=== PATIENT | female | born 1970 | race Caucasian/White ===

== ENCOUNTER 2020-01-09 22:24 | Emergency (ER) | payer SELFPAY ==
[2020-01-09 22:34] VITALS: BP 119/77; PULSE 108; RESP 20; TEMP 523.8; TEMP 975; O2SAT 94; BMI 25.7
--- NOTE | 2020-01-09 22:53 | XR_ITS ---
WS: [id number] Portable AP upright chest, 01/09/2020 Clinical Data: cough, SOB Comparison: None. Findings: No nodules, masses or effusions are seen. The heart is normal. The pulmonary vascularity is not increased. No pneumothorax is seen. Minimal interstitial prominence is seen throughout both lung s and this could indicate pulmonary edema or diffuse pneumonia. XR/XR chest 1V portable [id number] Impression: 1. Small interstitial opacities which could indicate pulmonary edema or diffuse pneumonia. 2. Recommend repeat chest x-ray in 2-3 days.
--- NOTE | 2020-01-09 22:55 | W.ED.SOB ---
HPI - SOB/Dyspnea General: Chief Complaint: Shortness of Breath/Dyspnea Stated Complaint: fever/cough/sob/sore throat Time Seen by Provider: 01/09/20 22:49 History of Present Illness: HPI Narrative: She presents with shortness of breath cough that is got worse today started yesterday. Says she has had a loss of taste also has diarrhea is a smoker. Says she has a sore throat nasal congestion nonproductive cough says she just cannot get her breath MD elicited complaint: shortness of breath and cough Onset (ago): day(s) Timing: constant and progressively worsening Severity: moderate Exacerbating factors: nothing Relieving factors: nothing Associated symptoms: Reports cough, extremity pain and myalgias; Deny abdominal pain, chest pain, fever(s), nausea or vomiting Treatment prior to arrival: none Review of Systems Const: Denies: fever(s), chills or body aches Eyes: Denies: change in vision or blurry vision ENMT: Reports: throat pain, nasal congestion and other (Loss of taste) Card: Denies: chest pain or dyspnea on exertion Resp: Reports: dyspnea and non-productive cough; Denies: productive cough GI: Denies: abdominal pain, nausea or vomiting Musc: Reports: extremity pain Skin/Breast: Denies: rash Neuro: Denies: headache(s) Psych: Denies: anxiety or depression Mathew/Lymph: Denies: easy bruising Physical Exam Const: COMMON NORMALS: no acute distress, average body habitus and patient oriented x3 HENMT: COMMON NORMALS: normocephalic HEAD & SCALP: normal to inspection and normocephalic FACE & SINUS: normal facial exam Eye: COMMON NORMALS: conjunctivae normal GENERAL EYE: appearance normal, both eyes and all related structures CONJUNCTIVA: Yes conjunctivae normal Neck/C-Spine: COMMON NORMALS: no JVD Chest: COMMONS NORMALS: normal inspection of the chest Resp: COMMON NORMALS: normal respiratory effort AUSCULTATION: rhonchi throughout Cardio: COMMON NORMALS: no JVD, regular rate and regular rhythm RATE: regular rate RHYTHM: regular rhythm GI: COMMON NORMALS: Normal to inspection, nondistended, normoactive bowel sounds present Extremity: COMMON NORMALS: normal to inspection and full ROM Neuro: COMMON NORMALS: patient oriented x3 Course Vital Signs: Vital signs: Vital Signs Temperature 975 F H 11/03/20 22:34 Pulse Rate 108 H 01/09/20 22:34 Respiratory Rate 20 H 01/09/20 22:34 Blood Pressure 119/77 01/09/20 22:34 Pulse Oximetry 94 01/09/20 22:34 Coding Level of Care Code ED [employer] Professor for Pramod Buchanan
[2020-01-09 23:38] VITALS: BP 111/75; PULSE 96; O2SAT 91
[2020-01-09 23:58] LABS: Basophils # 0.1 10^3/uL (0.0-0.1); Basophils % 0.5 %; Eosinophils # 0.1 10^3/uL (0.0-0.8); Eosinophils % 1.2 %; Hematocrit 39.6 % (37.0-47.0); Hemoglobin 12.6 g/dL (11.5-15.3); Lymphocytes % 17.1 %; Mean Corpuscular HGB Conc 31.8 g/dL (30.0-36.0); Mean Corpuscular Hemoglobin 31.1 pg (28.0-34.0); Mean Corpuscular Volume 97.8 fL (81-99); Mean Platelet Volume 11.6 fL (7.4-10.4); Monocytes # 1.4 10^3/uL (0.2-0.9); Monocytes % 11.5 %; Neutrophils # 8.14 10^3/uL (1.8-7.7); Neutrophils % 69.1 %; Nucleated Red Blood Cells % 0 %; Platelet Count 180 10^3/cmm (130-400); Red Blood Count 4.05 10^6/uL (4.1-5.3); Red Cell Distribution Width 14.2 % (12.1-15.1); White Blood Count 11.8 10^3/uL (4.0-10.0)
[2020-01-10 00:13] LABS: D Dimer 0.51 ug/mIFEU (0-0.59)
[2020-01-10 00:17] LABS: Alanine Aminotransferase 12 U/L (0-33); Alkaline Phosphatase 106 IU/L (35-105); Anion Gap 10.9 (5-19); Aspartate Amino Transferase 25 U/L (0-32); Blood Urea Nitrogen 8 mg/dL (6-20); Calcium 8.8 mg/dL (8.5-10.5); Carbon Dioxide 30 mmol/L (22-29); Chloride 101 mmol/L (98-107); Globulin 3.2 g/dL (1.3-4.6); Glomerular Filtration Rate 58.9 mL/min (90-130); Glucose 102 mg/dL (65-115); Osmolality Calculated 285 mOsm/kg (285-295); Potassium 3.9 mmol/L (3.5-5.1); Sodium 138 mmol/L (136-145); Total Bilirubin 0.2 mg/dL (0.15-1.2); Total Protein 7.2 g/dL (6.6-8.7)
[2020-01-10 00:43] VITALS: PULSE 109; RESP 24; O2SAT 92
[2020-01-10 01:00] VITALS: BP 128/66; PULSE 106; RESP 21; O2SAT 90
[2020-01-10 01:09] LABS: SARS Covid-2 Antigen Negative (Negative)
[2020-01-10 01:10] LABS: Influenza A by IFA Negative (Negative); Influenza B by IFA Negative (Negative)
[2020-01-10 01:45] VITALS: PULSE 100; RESP 15; O2SAT 90
[2020-01-11 19:28] LABS: Quest SARS-CoV-2 RNA NOT DETECTED (NOT DETECTED)
--- NOTE | 2020-01-12 09:51 | PC.NURSE ---
Attempted to call pt with COVID results unable to reach and voicemail is not set up. Letter was mailed to pt today.
== END 2020-01-10 01:49 | disposition home or self-care (01) ==
PROVIDERS: Emergency Provider Nurse Practitioner Family
DX: R06.02 Shortness of breath (principal)
CPT/HCPCS: 12345; 71045; 80053; 83605; 85025; 85378; 87426; 87635; 87804; 94640; 96374; 99284; J2930; J3535

== ENCOUNTER → 2020-04-09 11:30 | Outpatient (BNVA) | payer MEDICAID, SELFPAY | PROVIDERS: Visit Provider Nurse Practitioner | DX: R63.5 Abnormal weight gain (principal); R10.11 Right upper quadrant pain | CPT/HCPCS: 80053; 82150; 83690; 84443; 85025 ==

== ENCOUNTER → 2020-04-10 13:39 | Outpatient (BNVA) | payer MEDICAID, SELFPAY | PROVIDERS: PCP Nurse Practitioner Family; Visit Provider Nurse Practitioner Family | DX: M25.511 Pain in right shoulder (principal); G89.29 Other chronic pain | CPT/HCPCS: 73030 ==

== ENCOUNTER → 2021-08-27 16:00 | Outpatient (BNVA) | payer MEDICAID, SELFPAY | PROVIDERS: PCP Nurse Practitioner Family; Visit Provider Nurse Practitioner Family | DX: J40 Bronchitis, not specified as acute or chronic (principal); R05.9 Cough, unspecified | CPT/HCPCS: 87635 ==

== ENCOUNTER 2022-07-08 13:41 | Outpatient (CLI) | payer MEDICAID, SELFPAY ==
--- NOTE | 2022-07-08 14:00 | CTR_ITS ---
PROCEDURE INFORMATION: Exam: CT Abdomen And Pelvis With Contrast Exam date and time: 07/08/2022 2:42 PM Age: 52 years old Clinical indication: Abdominal pain; Localized; Right upper quadrant (ruq); Prior surgery; Surgery type: Tubal, gb, appy, 2x c-sections; Patient HX: Pain in right upper quad and across to left side x 2 years; Additional info: M79.10 - myalgia, unspecified site TECHNIQUE: Imaging protocol: Computed tomography of the abdomen and pelvis with contrast. Radiation optimization: All CT scans at this facility use at least one of these dose optimization techniques: automated exposure control; mA and/or kV adjustment per patient size (includes targeted exams where dose is matched to clinical indication); or iterative reconstruction. Contrast material: OMNI 350; Contrast volume: 95 ml; Contrast route: INTRAVENOUS (IV); REPORTING DATA: Count of CT and Cardiac NM exams in prior 12 months: This patient has received 0 known CTs and 0 known cardiac nuclear medicine studies in the 12 months prior to the current study. COMPARISON: CR XR chest 1V portable [id number] 01/09/2020 10:55 PM RADIATION DOSE METRICS: Total DLP (mGy-cm): 362.48 FINDINGS: Lungs: No significant infiltrate or effusion within the visualized lung bases. Liver: Normal. No mass. Gallbladder and bile ducts: Surgical clips within the gallbladder fossa, prior cholecystectomy. No biliary ductal dilatation. Pancreas: Normal. No ductal dilation. Spleen: Normal. No splenomegaly. Adrenal glands: Normal. No mass. Kidneys and ureters: Mild extrarenal pelvis on the right and kidneys show no significant abnormality. Stomach and bowel: Postsurgical clips in the pericecal region of prior appendectomy. No bowel obstruction. No focal inflammatory change. Appendix: See Stomach and bowel finding. Intraperitoneal space: Unremarkable. No free air. No significant fluid collection. Vasculature: Mild vascular calcification without aneurysmal dilatation of the abdominal aorta. Lymph nodes: Unremarkable. No enlarged lymph nodes. Urinary bladder: Unremarkable as visualized. Reproductive: Unremarkable as visualized. Bones/joints: Mild spondylotic change lower lumbar spine with component of degenerative disc disease L4-5. Soft tissues: Unremarkable. CT/CT abdomen pelvis w con* [id number] IMPRESSION: 1. Previous cholecystectomy and appendectomy. 2. Mild extrarenal pelvis of the right kidney, variation of normal. 3. Mild vascular calcification. 4. Mild spondylotic change lower lumbar spine with degenerative disc disease L4-5.
[2022-07-08] MEDS: iohexol 350 mg/mL 500 mL Btl (per mL) PO (14:28)
[2022-07-08] MEDS: iohexol 350 mg/mL 500 mL Btl (per mL) IV (14:45)
== END 2022-07-08 13:42 | disposition home or self-care (01) ==
PROVIDERS: PCP Family Medicine; Visit Provider Family Medicine
DX: F17.219 Nicotine dependence, cigarettes, with unspecified nicotine-induced disorders (principal); F41.0 Panic disorder [episodic paroxysmal anxiety]; F41.1 Generalized anxiety disorder; M79.10 Myalgia, unspecified site; R10.11 Right upper quadrant pain; R19.00 Intra-abdominal and pelvic swelling, mass and lump, unspecified site; R53.82 Chronic fatigue, unspecified; Z13.6 Encounter for screening for cardiovascular disorders; Z13.220 Encounter for screening for lipoid disorders; Z76.89 Persons encountering health services in other specified circumstances; Z90.49 Acquired absence of other specified parts of digestive tract
CPT/HCPCS: 74177; 80053; 80061; 84443; 85025; 85651; 86140; Q9967

== ENCOUNTER 2022-09-25 10:45 | Outpatient (CLI) | payer MEDICAID, SELFPAY ==
--- NOTE | 2022-09-25 10:54 | MM_ITS ---
WS: [id number] VIEWS: MLO and CC views both breasts. 3D digital tomosynthesis is also included in this exam. No priors. Findings: There is a 2 cm asymmetrical parenchymal density at about the 1:00 position in the right breast at an terior depth. No suspicious calcification or architectural distortion noted. This may represent a ham artoma. Compression spot views and regional ultrasound is suggested for further workup. The left abiel st is unremarkable.There are scattered areas of fibroglandular density. MM/[place] [id number] Impression: BI-RADS: 0-Incomplete: Need additional imaging evaluation FOLLOW-UP: See Report This mammogram was also analyzed by the Computer A[employer] Detection System [employer] Certified Low Vision Therapist.
== END 2022-09-25 10:46 | disposition home or self-care (01) ==
LOC: RAD 10:45
PROVIDERS: PCP Family Medicine; Visit Provider Family Medicine
DX: Z12.31 Encounter for screening mammogram for malignant neoplasm of breast (principal)
CPT/HCPCS: 77063; 77067

== ENCOUNTER 2022-09-29 12:22 | Emergency (ER) | payer MEDICAID, SELFPAY ==
[2022-09-29 12:42] VITALS: BP 125/85; PULSE 80; RESP 18; TEMP 37; O2SAT 95; BMI 24.0
--- NOTE | 2022-09-29 12:53 | XR_ITS ---
WS: [id number] EXAMINATION: XR chest 1V portable [id number] REASON FOR EXAM: Syncope COMPARISON: 01/09/2020 ORDER DATE: 09/29/2022 12:56 PM TECHNIQUE: A single, portable frontal chest x-ray was obtained. X-RAY FINDINGS: The lungs are clear. Pleural spaces are clear. No pleural effusions or pneumothorax. Cardiomediastinal silhouette is normal. No evidence for pulmonary edema. Soft tissue and osseous structures are unremarkable. No tubes or lines are present. There is a small metal snap-like density superimposing the lateral lef t upper lobe. XR/XR chest 1V portable [id number] IMPRESSION: Unremarkable frontal portable chest x-ray.
--- NOTE | 2022-09-29 12:53 | CT_ITS ---
WS: [id number] CT HEAD TECHNIQUE: Noncontrast CT of the head obtained from the skullbase to the vertex. CLINICAL INFORMATION: sudden severe headache COMPARISON: None. DLP: 985.[address] scans at [facility] use at least one of these dose optimization techniques: automated e xposure control; mA and/or kV adjustment per patient size (includes targeted exams where dose is matc hed to clinical indication); or iterative reconstruction. FINDINGS: No evidence of intracranial hemorrhage or mass effect. Ventricular system and basal cisterns are crespo nt. No extra-axial fluid collections. Mild intracranial vascular calcification. No evidence of mass o r mass effect. Normal lees-white differentiation. Paranasal sinuses and mastoid air cells are well aerated. .Normal visualized soft tissues. CT/CT head wo con* [id number] IMPRESSION: 1. No evidence of intracranial hemorrhage or mass effect. 2. No acute intracranial findings.
--- NOTE | 2022-09-29 13:01 | ED_ITS ---
Documented by User: BRITTANY Todd 09/30/22 08:25 HPI - Syncope General: Chief Complaint: Syncope Stated Complaint: Headache Time Seen by Provider: 09/29/22 12:43 History of Present Illness: Patient comes to the ED with episode of severe headache. Patient says this morning she woke up and was outside and worked in her yard a little bit. She was having a mild headache that was generalized and she took 500 mg of Tylenol at approximately 10 AM. she was sitting down eating lunch at approximately 12 to 12:30 PM and all of a sudden she developed a very severe sharp headache that started on the top left side of her head and then started radiating down into the left maxillary region of her face. At that time she states that she felt like she was going to pass out. She had nausea and had a couple episodes of emesis as well she became very weak. She started feeling some numbness and tingling in her left arm and hand. She felt like she could not control her left arm and hand. She also reports feeling like she could not open her eyelids on her left eye. She denies any preceding symptoms, chest pain, shortness of breath or heart palpitations. She felt like she was going to pass out but never completely passed out. EMS was called to her house and they found patient laying on the floor. Here in the ED her headache is more mild and she rates it a 5 out of 10. She still feels a little bit of numbness and tingling in her left arm but says the other symptoms have resolved and she is able to move her left arm the way she wants to but it feels a little weak and not right. Denies any history of strokes and patient is not on a blood thinner. Denies any recent head injuries. Associated symptoms: Reports headache(s); Deny abdominal pain, chest pain, fever(s) or nausea Review of Systems Const: Denies: fever(s), chills or fatigue Eyes: Denies: change in vision or eye discomfort ENMT: Denies: throat pain, odynophagia, nasal discharge or nasal congestion Card: Reports: pre-syncope; Denies: chest pain, palpitations, edema, swelling of feet/ankles, dyspnea on exertion or orthopnea Resp: Denies: dyspnea, productive cough or non-productive cough GI: Denies: abdominal pain, nausea, vomiting, diarrhea, constipation or hematochezia : Denies: flank pain, dysuria or hematuria Musc: Denies: neck pain, back pain or extremity swelling Skin/Breast: Denies: rash or new lesions Neuro: Reports: headache(s), numbness in extremities (Left arm and hand) and weakness in extremities (Left arm and hand) PFSH ED PFSH: Medical History Hx of pneumococcal pneumonia Surgical History Hx of appendectomy Lap Hx of section x 2 Hx of cholecystectomy Lap Social History Smoking and tobacco status: current every day smoker cigarettes Packs smoked per day: 0.5 Second hand smoke exposure: No Smoking risk assessment/counseling performed?: No Alcohol intake: never Desire information about alcohol rehabilitation?: No Counseling given: No Substance/Drug Use: current Substance/Drug use frequency: few times a week Desire information about substance/drug rehabilitation?: No Counseling given: No Adopted: No Caregiver/support person: No Lives independently: Yes Household members: none Housing: House Marital status: Number of children: 2 service: No Current occupational status: unemployed Pets and animals: No Do you think of yourself as: Straight/Heterosexual Current gender identity: Female Physical Exam Const: COMMON NORMALS: no acute distress, patient oriented x3, healthy appearing and alert HENMT: COMMON NORMALS: normocephalic HEAD & SCALP: normocephalic MOUTH: Normal oral and palatal mucosa present THROAT: posterior oropharynx normal and uvula midline Eye: COMMON NORMALS: Equal, round and reactive pupils present and EOMs intact bilaterally GENERAL EYE: appearance normal, both eyes and all related structures PUPIL: Yes Equal, round and reactive pupils present Neck/C-Spine: COMMON NORMALS: supple GENERAL: Yes normal visual inspection Lymph: LYMPHATIC: no lymphadenopathy noted Resp: COMMON NORMALS: normal respiratory effort, No retractions, No use of accessory muscles and clear to auscultation bilaterally AUSCULTATION: clear to auscultation bilaterally Cardio: COMMON NORMALS: regular rate, regular rhythm, S1 normal heart sound present, S2 normal heart sound present, No gallops present (Cardio), No clicks present (Cardio), No murmurs present (Cardio) and Peripheral pulses 2+ throughout RATE: regular rate RHYTHM: regular rhythm HEART SOUNDS: S1 normal heart sound present and S2 normal heart sound present PERIPHERAL PULSES: Peripheral pulses 2+ throughout GI: COMMON NORMALS: Normal to inspection, nondistended, normoactive bowel sounds present, Soft to palpation, non-tender and no masses PALPATION: Yes Soft to palpation : COMMON NORMALS: Yes no CVA tenderness BLADDER/KIDNEY EXAM: Yes no CVA tenderness Back/Pelvis: COMMON NORMALS: no CVA tenderness Extremity: GENERAL: Yes normal exam except as noted Neuro: COMMON NORMALS: patient oriented x3 SENSORIUM/ORIENTATION: Yes alert COORDINATION/BALANCE: [id number] test normal SPEECH: speech normal GAIT: Yes Normal gait present SENSORY EXAM: Yes extremities (intact) MOTOR EXAM: 5/5 motor strength present throughout and Pronator motor function not present COORDINATION: [id number] test normal Skin: COMMON NORMALS: no rashes or lesions noted GENERAL SKIN EXAM: no rashes or lesions noted and dry skin Course Vital Signs: Vital signs: Vital Signs Temperature 98.6 F 09/29/22 12:42 Pulse Rate 69 09/29/22 14:58 Respiratory Rate 18 09/29/22 12:42 Blood Pressure 119/71 09/29/22 14:58 Pulse Oximetry 98 09/29/22 14:58 Oxygen Delivery Me thod Room Air 09/29/22 14:58 MDM - Syncope Medical Decision Making Patient comes to the ED with episode of severe headache. Patient says this mo rning she woke up and was outside and worked in her yard a little bit. She was having a mild headache that was generalized and she took 500 mg of Tylenol at approximately 10 AM. she was sitting down eating lunch at approximately 12 to 12:30 PM and all of a sudden she developed a very severe sharp headache that started on the top left side of her head and then started radiating down into the left maxillary region of her face. At that time she states that she felt like she was going to pass out. She had nausea and had a couple episodes of emesis as well she became very weak. She started feeling some numbness and tingling in her left arm and hand. She felt like she could not control her left arm and hand. She also reports feeling like she could not open her eyelids on her left eye. She denies any preceding symptoms, chest pain, shortness of breath or heart palpitations. She felt like she was going to pass out but never completely passed out. EMS was called to her house and they found patient laying on the floor. Here in the ED her headache is more mild and she rates it a 5 out of 10. She still feels a little bit of numbness and tingling in her left arm but says the other symptoms have resolved and she is able to move her left arm the way she wants to but it feels a little weak and not right. Denies any history of strokes and patient is not on a blood thinner. Denies any recent head injuries. Vital stable. Patient appears healthy is alert and oriented x3 and in no acute distress or pain. Neuro exam showed no deficits. CBC and CMP are unremarkable. Chest x-ray shows no acute findings. Troponin negative. Head CT showed no acute findings. EKG showed no acute findings. Patient feels completely back to normal here in the ED and headache has resolved. Talked with patient about the possibility of being admitted and patient stated she did not want to be admitted to the hospital and would like to go home and try outpatient treatment first. I placed orders with case management for patient to be set up with an ultrasound of carotids, appointment with the neurologist, echocardiogram, Holter monitor, and MRI of head. Patient was diagnosed with a headache and strokelike episode and she was discharged home with a prescription for daily aspirin and a atorvastatin. Strict return to ED precautions given. Patient understood and agreed with plan. I discussed patient case with Dr. Dugan he agreed with plan. Lab Data I reviewed the patient's lab results. 09/29/22 13:08 09/29/22 13:08 Radiology Impressions Chest X-Ray 09/29/22 12:53 IMPRESSION: Unremarkable frontal portable chest x-ray. Head CT 09/29/22 12:53 IMPRESSION: 1. No evidence of intracranial hemorrhage or mass effect. 2. No acute intracranial findings. Laboratory Results WBC 9.4 10^3/uL (4.0-10.0) 09/29/22 13:08 RBC 4.06 10^6/uL (4.1-5.3) L 09/29/22 13:08 Hgb 13.0 g/dL (11.5-15.3) 09/29/22 13:08 Hct 40.0 % (37.0-47.0) 09/29/22 13:08 MCV 98.5 fl (81-99) 09/29/22 13:08 MCH 32.0 pg (28.0-34.0) 09/29/22 13:08 MCHC 32.5 g/dL (30.0-36.0) 09/29/22 13:08 RDW 14.5 % (12.1-15.1) 09/29/22 13:08 Plt Count 127 10^3/cmm (130-400) L 09/29/22 13:08 MPV 12.6 fL (7.4-10.4) H 09/29/22 13:08 Neut % (Auto) 55.2 % 09/29/22 13:08 Lymph % (Auto) 35.7 % 09/29/22 13:08 [place] % (Auto) 7.2 % 09/29/22 13:08 Eos % (Auto) 1.2 % 09/29/22 13:08 Baso % (Auto) 0.5 % 09/29/22 13:08 Neut # (Auto) 5.17 10^3/uL (1.8-7.7) 09/29/22 13:08 Lymph # (Auto) 3.3 10^3/uL (0.8-4.8) 09/29/22 13:08 [place] # (Auto) 0.7 10^3/uL (0.2-0.9) 09/29/22 13:08 Eos # (Auto) 0.1 10^3/uL (0.0-0.8) 09/29/22 13:08 Baso # (Auto) 0.1 10^3/uL (0.0-0.1) 09/29/22 13:08 Nucleated RBC % (auto) 0 % 09/29/22 13:08 Nucleated RBCs # 0.0 /100WBC 09/29/22 13:08 Sodium 139 mmol/L (136-145) 09/29/22 13:08 Potassium 3.8 mmol/L (3.5-5.1) 09/29/22 13:08 Chloride 102 mmol/L (98-107) 09/29/22 13:08 Carbon Dioxide 26 mmol/L (22-29) 09/29/22 13:08 Anion Gap 14.8 (5-19) 09/29/22 13:08 BUN 4 mg/dL (6-20) L 09/29/22 13:08 Creatinine 0.7 mg/dL (0.5-0.9) 09/29/22 13:08 GFR Calculation 87.9 mL/min (90-130) L 09/29/22 13:08 Glucose 88 mg/dL (65-115) 09/29/22 13:08 Calculated Osmolality 284 mOsm/kg (285-295) L 09/29/22 13:08 Calcium 8.8 mg/dL (8.5-10.5) 09/29/22 13:08 Total Bilirubin 0.3 mg/dL (0.15-1.2) 09/29/22 13:08 AST 17 U/L (0-32) 09/29/22 13:08 ALT 9 U/L (0-33) 09/29/22 13:08 Alkaline Phosphatase 97 U/L (35-105) 09/29/22 13:08 Troponin T Baseline 6 ng/L (0-10) 09/29/22 13:08 Total Protein 6.4 g/dL (6.6-8.7) L 09/29/22 13:08 Albumin 3.9 g/dL (3.5-5.2) 09/29/22 13:08 Globulin 2.5 g/dL (1.3-4.6) 09/29/22 13:08 HCG, Qual Negative (Negative) 09/29/22 13:08 EKG Data EKG 1: EKG interpretation date: 09/29/22 Interpretation: Sinus rhythm, 73 bpm, no ST segment elevation or depression seen. Discharge Plan Discharge Patient Disposition: Home Clinical Impression: Stroke-like episode Headache Qualifiers: Headache type: unspecified Headache chronicity pattern: acute headache Intractability: not intractable Qualified Code(s): R51.9 - Headache, unspecified Condition: Stable Prescriptions: New aspirin 81 mg capsule 81 mg PO DAILY Qty: 60 0RF atorvastatin 40 mg tablet 40 mg PO DAILY Qty: 30 0RF No Action escitalopram oxalate [Lexapro] 5 mg tablet 5 mg PO DAILY Qty: 30 5RF pantoprazole 40 mg tablet,delayed release (DR/EC) 40 mg PO BID Qty: 60 2RF alprazolam [Xanax] 0.5 mg tablet 0.5 mg PO DAILY Qty: 30 5RF Ventolin HFA 90 mcg/actuation HFA aerosol inhaler 3 inh INHALATION Q4H PRN (Reason: shortness of breath or wheezing) Qty: 8.5 0RF Rx Instructions: until breathing returns to target peak flow/parameters sucralfate 1 gram tablet 1 g PO BID Discharge Orders: Discharge ED (Routine); Ordered 09/29/22 Ordered By: Eran Hart Referrals: Zackary Canales DO [Primary Care Provider] - Discharge Diet: Regular Discharge Activity: Resume usual activity Patient Instructions: Transient Ischemic Attack (ED), Acute Headache (ED) Activity Restrictions/Additional Instructions: Follow-up with your primary care provider within the next week for reevaluation. Case management should be calling you to get an appointment set up with a neurologist and also to schedule outpatient MRI of head, Holter monitor, ul trasound of carotids and echocardiogram. Take medications as prescribed. Return to the ER or your medical provider if condition worsens. Please read and understand discharge instructions. Thank you for choosing [facility] for your healthcare needs today. Please realize this is an emergency room and that we are providing you with a medical screening exam and this may not be complete and all inclusive of all the testing and or work up that you may need to determine your ailment or severity of your illness. It is very important that you follow up as instructed or that you return to the Emergency Department should you have concerns or if your condition changes or worsens in any way. Coding Level of Care Code ED Butter Grader for Chg Fwd Documented by User: Neymar Dugan DO 09/30/22 10:01 HPI - Syncope General: Chief Complaint: Syncope Stated Complaint: Headache Time Seen by Provider: 09/29/22 12:43 PFSH ED PFSH: Medical History Hx of pneumococcal pneumonia Surgical History Hx of appendectomy Lap Hx of section x 2 Hx of cholecystectomy Lap Social History Smoking and tobacco status: current every day smoker cigarettes Packs smoked per day: 0.5 Second hand smoke exposure: No Smoking risk assessment/counseling performed?: No Alcohol intake: never Desire information about alcohol rehabilitation?: No Counseling given: No Substance/Drug Use: current Substance/Drug use frequency: few times a week Desire information about substance/drug rehabilitation?: No Counseling given: No Adopted: No Caregiver/support person: No Lives independently: Yes Household members: none Housing: House Marital status: Number of children: 2 service: No Current occupational status: unemployed Pets and animals: No Do you think of yourself as: Straight/Heterosexual Current gender identity: Female Course Vital Signs: Vital signs: Vital Signs Temperature 98.6 F 09/29/22 12:42 Pulse Rate 69 09/29/22 14:58 Respiratory Rate 18 09/29/22 12:42 Blood Pressure 119/71 09/29/22 14:58 Pulse Oximetry 98 09/29/22 14:58 Oxygen Delivery Me thod Room Air 09/29/22 14:58 MDM - Syncope Medical Decision Making Patient comes to the ED with episode of severe headache. Patient says this morning she woke up and was outside and worked in her yard a little bit. She was having a mild headache that was generalized and she took 500 mg of Tylenol at approximately 10 AM. she was sitting down eating lunch at approximately 12 to 12:30 PM and all of a sudden she developed a very severe sharp headache that started on the top left side of her head and then started radiating down into the left maxillary region of her face. At that time she states that she felt like she was going to pass out. She had nausea and had a couple episodes of emesis as well she became very weak. She started feeling some numbness and tingling in her left arm and hand. She felt like she could not control her left arm and hand. She also reports feeling like she could not open her eyelids on her left eye. She denies any preceding symptoms, chest pain, shortness of breath or heart palpitations. She felt like she was going to pass out but never completely passed out. EMS was called to her house and they found patient laying on the floor. Here in the ED her headache is more mild and she rates it a 5 out of 10. She still feels a little bit of numbness and tingling in her left arm but says the other symptoms have resolved and she is able to move her left arm the way she wants to but it feels a little weak and not right. Denies any history of strokes and patient is not on a blood thinner. Denies any recent head injuries. Vital stable. Patient appears healthy is alert and orien lynn x3 and in no acute distress or pain. Neuro exam showed no deficits. CBC and CMP are unremarkable. Chest x-ray shows no acute findings. Troponin negative. Head CT showed no acute findings. EKG showed no acute findings. Patient feels completely back to normal here in the ED and headache has resolved. Talked with patient about the possibility of being admitted and patient stated she did not want to be admitted to the hospital and would like to go home and try outpatient treatment first. I placed orders with case management for patient to be set up with an ultrasound of carotids, appointment with the neurologist, echocardiogram, Holter monitor, and MRI of head. Patient was diagnosed with a headache and strokelike episode and she was discharged home with a prescription for daily aspirin and a atorvastatin. Strict return to ED precautions given. Patient understood and agreed with plan. I discussed patient case with Dr. Dugan he agreed with plan. Chart reviewed and patient discussed with midlevel. Agree with assessment and plan. Lab Data 09/29/22 13:08 09/29/22 13:08 Radiology Impressions Chest X-Ray 09/29/22 12:53 IMPRESSION: Unremarkable frontal portable chest x-ray. Head CT 09/29/22 12:53 IMPRESSION: 1. No evidence of intracranial hemorrhage or mass effect. 2. No acute intracranial findings. Laboratory Results WBC 9.4 10^3/uL (4.0-10.0) 09/29/22 13:08 RBC 4.06 10^6/uL (4.1-5.3) L 09/29/22 13:08 Hgb 13.0 g/dL (11.5-15.3) 09/29/22 13:08 Hct 40.0 % (37.0-47.0) 09/29/22 13:08 MCV 98.5 fl (81-99) 09/29/22 13:08 MCH 32.0 pg (28.0-34.0) 09/29/22 13:08 MCHC 32.5 g/dL (30.0-36.0) 09/29/22 13:08 RDW 14.5 % (12.1-15.1) 09/29/22 13:08 Plt Count 127 10^3/cmm (130-400) L 09/29/22 13:08 MPV 12.6 fL (7.4-10.4) H 09/29/22 13:08 Neut % (Auto) 55.2 % 09/29/22 13:08 Lymph % (Auto) 35.7 % 09/29/22 13:08 [place] % (Auto) 7.2 % 09/29/22 13:08 Eos % (Auto) 1.2 % 09/29/22 13:08 Baso % (Auto) 0.5 % 09/29/22 13:08 Neut # (Auto) 5.17 10^3/uL (1.8-7.7) 09/29/22 13:08 Lymph # (Auto) 3.3 10^3/uL (0.8-4.8) 09/29/22 13:08 [place] # (Auto) 0.7 10^3/uL (0.2-0.9) 09/29/22 13:08 Eos # (Auto) 0.1 10^3/uL (0.0-0.8) 09/29/22 13:08 Baso # (Auto) 0.1 10^3/uL (0.0-0.1) 09/29/22 13:08 Nucleated RBC % (auto) 0 % 09/29/22 13:08 Nucleated RBCs # 0.0 /100WBC 09/29/22 13:08 Sodium 139 mmol/L (136-145) 09/29/22 13:08 Potassium 3.8 mmol/L (3.5-5.1) 09/29/22 13:08 Chloride 102 mmol/L (98-107) 09/29/22 13:08 Carbon Dioxide 26 mmol/L (22-29) 09/29/22 13:08 Anion Gap 14.8 (5-19) 09/29/22 13:08 BUN 4 mg/dL (6-20) L 09/29/22 13:08 Creatinine 0.7 mg/dL (0.5-0.9) 09/29/22 13:08 GFR Calculation 87.9 mL/min (90-130) L 09/29/22 13:08 Glucose 88 mg/dL (65-115) 09/29/22 13:08 Calculated Osmolality 284 mOsm/kg (285-295) L 09/29/22 13:08 Calcium 8.8 mg/dL (8.5-10.5) 09/29/22 13:08 Total Bilirubin 0.3 mg/dL (0.15-1.2) 09/29/22 13:08 AST 17 U/L (0-32) 09/29/22 13:08 ALT 9 U/L (0-33) 09/29/22 13:08 Alkaline Phosphatase 97 U/L (35-105) 09/29/22 13:08 Troponin T Baseline 6 ng/L (0-10) 09/29/22 13:08 Total Protein 6.4 g/dL (6.6-8.7) L 09/29/22 13:08 Albumin 3.9 g/dL (3.5-5.2) 09/29/22 13:08 Globulin 2.5 g/dL (1.3-4.6) 09/29/22 13:08 HCG, Qual Negative (Negative) 09/29/22 13:08 Discharge Plan Discharge Patient Disposition: Home Clinical Impression: Stroke-like episode Headache Qualifiers: Headache type: unspecified Headache chronicity pattern: acute headache Intractability: not intractable Qualified Code(s): R51.9 - Headache, unspecified Condition: Stable Prescriptions: New aspirin 81 mg capsule 81 mg PO DAILY Qty: 60 0RF atorvastatin 40 mg tablet 40 mg PO DAILY Qty: 30 0RF No Action escitalopram oxalate [Lexapro] 5 mg tablet 5 mg PO DAILY Qty: 30 5RF pantoprazole 40 mg tablet,delayed release (DR/EC) 40 mg PO BID Qty: 60 2RF alprazolam [Xanax] 0.5 mg tablet 0.5 mg PO DAILY Qty: 30 5RF Ventolin HFA 90 mcg/actuation HFA aerosol inhaler 3 inh INHALATION Q4H PRN (Reason: shortness of breath or wheezing) Qty: 8.5 0RF Rx Instructions: until breathing returns to target peak flow/parameters sucralfate 1 gram tablet 1 g PO BID Discharge Orders: Discharge ED (Routine); Ordered 09/29/22 Ordered By: Eran Hart Referrals: Zackary Canales DO [Primary Care Provider] - Discharge Diet: Regular Discharge Activity: Resume usual activity Patient Instructions: Transient Ischemic Attack (ED), Acute Headache (ED) Activity Restrictions/Additional Instructions: Follow-up with your primary care provider within the next week for reevaluation. Case management should be calling you to get an appointment set up with a neurologist and also to schedule outpatient MRI of head, Holter monitor, ultrasound of carotids and echocardiogram. Take medications as prescribed. Return to the ER or your medical provider if condition worsens. Please read and understand discharge instructions. Thank you for choosing [facility] for your healthcare needs today. Please realize this is an emergency room and that we are providing you with a medical screening exam and this may not be complete and all inclusive of all the testing and or work up that you may need to determine your ailment or severity of your illness. It is very important that you follow up as instructed or that you return to the Emergency Department should you have concerns or if your condition changes or worsens in any way. Coding Level of Care Code ED Butter Grader for Pramod Buchanan
[2022-09-29 13:21] LABS: Basophils # 0.1 10^3/uL (0.0-0.1); Basophils % 0.5 %; Eosinophils # 0.1 10^3/uL (0.0-0.8); Eosinophils % 1.2 %; Lymphocytes # 3.3 10^3/uL (0.8-4.8); Lymphocytes % 35.7 %; Mean Corpuscular HGB Conc 32.5 g/dL (30.0-36.0); Mean Corpuscular Volume 98.5 fl (81-99); Mean Platelet Volume 12.6 fL (7.4-10.4); Monocytes # 0.7 10^3/uL (0.2-0.9); Monocytes % 7.2 %; Neutrophils # 5.17 10^3/uL (1.8-7.7); Neutrophils % 55.2 %; Nucleated Red Blood Cells % 0 %; Platelet Count 127 10^3/cmm (130-400); Red Blood Count 4.06 10^6/uL (4.1-5.3); Red Cell Distribution Width 14.5 % (12.1-15.1); White Blood Count 9.4 10^3/uL (4.0-10.0)
[2022-09-29 13:35] LABS: HCG, Serum Qual Negative (Negative)
[2022-09-29 13:38] LABS: Troponin(5th) Baseline 6 ng/L (0-10)
[2022-09-29 14:22] LABS: Alanine Aminotransferase 9 U/L (0-33); Albumin Level 3.9 g/dL (3.5-5.2); Alkaline Phosphatase 97 U/L (35-105); Blood Urea Nitrogen 4 mg/dL (6-20); Calcium 8.8 mg/dL (8.5-10.5); Carbon Dioxide 26 mmol/L (22-29); Chloride 102 mmol/L (98-107); Globulin 2.5 g/dL (1.3-4.6); Glomerular Filtration Rate 87.9 mL/min (90-130); Glucose 88 mg/dL (65-115); Osmolality Calculated 284 mOsm/kg (285-295); Sodium 139 mmol/L (136-145); Total Bilirubin 0.3 mg/dL (0.15-1.2); Total Protein 6.4 g/dL (6.6-8.7)
[2022-09-29 14:24] LABS: Anion Gap 14.8 (5-19); Aspartate Amino Transferase 17 U/L (0-32); Potassium 3.8 mmol/L (3.5-5.1)
--- NOTE | 2022-09-29 14:53 | ECG_ITS ---
[facility] Test Date: 2022-09-29 Pat Name: Caroline Cordero Department: Room: Gender: Female Bindery Operator: : 1970 Requested By: Eran Hart Order Number: [id number] Delgaod MD: Marek Bran M.D. Measurements Intervals [place] Rate: 73 P: 57 VT: 166 QRS: 60 QRSD: 100 T: 66 QT: 392 QTc: 434 Interpretive Statements SINUS RHYTHM INCOMPLETE RIGHT BUNDLE BRANCH BLOCK [90+ ms QRS DURATION, TERMINAL R IN V1/V2, 40+ ms S IN I/aVL/V4/V5/V6] No previous ECG available for comparison Electronically Signed On 09-29-2022 17:38:09 CDT by Marek Bran M.D. [id number]
[2022-09-29 14:58] VITALS: BP 119/71; PULSE 69; O2SAT 98
--- NOTE | 2022-09-30 07:12 | DCPLANNER ---
Addendum entered by Zohra Purcell 10/16/22 10:48: Patient did attend the appointment at [facility] Addendum entered by Zohra Purcell 10/14/22 11:11: Patient had an outpatient MRI scheduled for 10.14.22 - patient did attend appointment Patient had an outpatient echo and carotid scheduled - patient did attend both appointments Patient has an outpatient appointment at [facility] scheduled for Friday, October 14, 2022. Original Note: construction area manager had message to schedule an outpatient holter monitor, MRI head, US carotid, and echo cardiogram for patient. construction area manager faxed signed orders to [facility] and centralized scheduling, who will call patient with appointment information.
--- NOTE | 2022-09-30 07:28 | DCPLANNER ---
Addendum entered by Zohra Purcell 10/14/22 11:14: Patient had a follow up appointment scheduled with neurology - patient did attend appointment. Original Note: manager configuration had message to schedule a follow up appointment for patient with neurology. manager configuration sent patients information to the front office staff at neurology. Patients information will be printed and reviewed. Clinic will call patient with appointment information.
== END 2022-09-29 15:22 | disposition home or self-care (01) ==
PROVIDERS: Emergency Provider Physician Assistant; PCP Family Medicine
DX: R51.9 Headache, unspecified (principal); R68.89 Other general symptoms and signs; F17.210 Nicotine dependence, cigarettes, uncomplicated
CPT/HCPCS: 36415; 70450; 71045; 80053; 84484; 84703; 85025; 93005; 99285

== ENCOUNTER 2022-10-07 13:33 | Outpatient (CLI) | payer MEDICAID, SELFPAY ==
--- NOTE | 2022-10-07 13:55 | USCV_ITS ---
Caroline Cordero Age: 52 Gender: F : 1970 Exam Date: 10/07/2022 14:13 Ordering Phys: Eran Hart Technologist: CT Exam [place] [facility] [place] Indication: TIA Risk Factors: Previous Vascular Surgery: Right Brachial BP: / Left Brachial BP: / Right Left Velocity (cm/s) Spectral Plaque Velocity (cm/s) Spectral Plaque Syst/Diast Broadening Syst/Diast Broadening 71.50/ 24.90 Prox CCA 63.60 / 22.60 66.40/ 19.10 Mid CCA 68.30 / 24.90 54.30/ 15.70 Distal CCA 54.90 / 17.20 38.60/ 14.80 Prox ICA 80.40 / 26.80 47.40/ 21.50 Mid ICA 61.10 / 29.10 59.10/ 23.40 Distal ICA 66.20 / 26.60 54.80 ECA 61.20 0.83 ICA/CCA 1.18 Antegrade Vertebral Antegrade 41.90/ 16.20 cm/s 27.50/ 10.20 cm/s Tri Subclavian Tri 101.7 113.0 0 0 FINDINGS Comparison: none available. No significant elevation of systolic or diastolic velocities. Waveforms are normal. No significant amount of calcified plaque or intimal thickening identified. CONCLUSIONS Normal carotid doppler ultrasound. Dr. Leia Hicks DO (Electronically Signed) Final Date: 07 October 2022 16:16 S
--- NOTE | 2022-10-07 13:55 | USCV_ITS ---
Caroline Cordero Age: 52 Gender: F : 1970 Exam Date: 10/07/2022 14:47 Ordering Phys: Eran Hart Technologist: CT Exam [place]: [facility] [place] [facility] [place] Indication: tia BP: 92 / 61 HR: 71 Rhythm: Sinus Technical Quality: Adequate MEASUREMENTS (Male / Female) Normal Values 2D ECHO LV Diastolic Diameter PLAX 3.7 cm 4.2 - 5.9 / 3.9 - 5.3 cm LV Systolic Diameter PLAX 2.2 cm LV Chamber Size 3.8 cm IVS Diastolic Thickness 0.8 cm 0.6 - 1.0 / 0.6 - 0.9 cm IVS Systolic Thickness 1.2 cm LVPW Diastolic Thickness 0.9 cm 0.6 - 1.0 / 0.6 - 0.9 cm LVPW Systolic Thickness 1.8 cm RV Chamber Size 3.4 cm LVOT Diameter 2.1 cm LV Ejection Fraction 2D Teich 66.1 % LV Ejection Fraction MOD 2C 62.1 % LV Ejection Fraction 2C AL 61.9 % LA Diameter 3.0 cm LA Width 2.6 cm LA Height 4.2 cm RA Width 2.9 cm RA Height 4.3 cm Aorta at Sinotubular Diameter 2.3 cm IVC Diameter 1.7 cm M-MODE Aortic Annulus Diameter 2.9 cm LA Ao Ratio MM 1.3 MV E Point Septal Separation 0.7 cm DOPPLER AV Peak Velocity 119.7 cm/s MV Area PHT 3.3 cm squared Mitral E to A Ratio 1.2 MV E' Velocity 45.0 cm/s Mitral E to MV E' Ratio 4.3 Mitral E to LV E' Lateral Ratio 4.3 Mitral E to LV E' Septal Ratio 4.3 TR Peak Velocity 184.3 cm/s TR Peak Gradient 13.6 mmHg TV Peak E Velocity 95.0 cm/s Right Atrial Pressure 3.0 mmHg Pulmonary Artery Systolic Pressu 16.6 mmHg PV Peak Velocity 90.0 cm/s FINDINGS Left Ventricle Left ventricle is normal in size. LV systolic function is normal with EF of 60 to 65%. No regional wall motion abnormalities are seen. Diastolic function is normal. Right Ventricle Normal in size and function Right Atrium Normal in size Left Atrium Normal in size Mitral Valve Structurally normal mitral valve. Trace mitral regurgitation Aortic Valve Structurally normal aortic valve. No significant stenosis or regurgitation. Tricuspid Valve Mild tricuspid regurgitation. Pulmonary artery systolic pressure is normal. Pulmonic Valve Not well-visualized Pericardium Normal Aorta Normal in size IVC Appears to be normal CONCLUSIONS LV systolic function is normal with EF of 60 to 65%. Diastolic function is normal. Mild tricuspid regurgitation Trace mitral regurgitation No comparison studies are available Marek Bran MD (Electronically Signed) Final Date: 20 October 2022 21:27 S
== END 2022-10-07 13:34 | disposition home or self-care (01) ==
PROVIDERS: PCP Family Medicine; Visit Provider Physician Assistant
DX: R29.90 Unspecified symptoms and signs involving the nervous system (principal); I07.1 Rheumatic tricuspid insufficiency
CPT/HCPCS: 93306; 93880

== ENCOUNTER 2022-10-14 09:23 | Outpatient (CLI) | payer MEDICAID, SELFPAY ==
--- NOTE | 2022-10-14 | MR_ITS ---
WS: [id number] MRI BRAIN WITH AND WITHOUT CONTRAST HISTORY: STROKELIKE SYMPTOMS COMPARISON: CT head 09/29/2022 TECHNIQUE: Multiplanar imaging performed through the brain with MultiHance 14 ml's IV. No acute infarcts are seen. Cantrell-white matter differentiation is well preserved. There are a few very minimal subcortical T2 hyperintensities which are nonspecific. No infarcts. No hemorrhage. No susceptibility artifacts or prior lacunar infarcts. Ventricles and extra-axial spaces are normal. Clivus and pituitary gland are normal. Visualized posterior fossa and brainstem are also normal. Postcontrast images are negative for masses or vascular malformations. Dural venous sinuses are normal. Paranasal sinuses: Well aerated with no significant disease. Mastoid air cells: Normal. Calvarium and scalp: Normal. IMPRESSION: 1. No acute infarct or hemorrhage. 2. Minimal subcortical T2 hyperintensities from small vessel ischemic disease.
[2022-10-14] MEDS: gadobenate dimeglumine 20 mL vial IV (10:13)
--- NOTE | 2022-10-14 12:30 | CT_ITS ---
WS: [id number] CTA HEAD AND NECK TECHNIQUE: Contrast enhanced CTA of the head and neck with coronal and sagittal reformatted images an d maximum intensity projection (MIP) images. NASCET criteria utilized. CLINICAL INFORMATION: G45.9 - Transient cerebral ischemic attack, unspecified COMPARISON: MRI 10/14/2022 DLP: 1115.[address] scans at [facility] use at least one of these dose optimization techniques: automated e xposure control; mA and/or kV adjustment per patient size (includes targeted exams where dose is matc hed to clinical indication); or iterative reconstruction. FINDINGS: No evidence intracranial hemorrhage or mass effect. Normal lees-white differentiation. No h ydrocephalus. No extra-axial fluid collections. Paranasal sinuses and mastoid air cells are well aera lynn. Normal posterior nasopharynx. RIGHT: Right common carotid artery is patent. No significant right ICA stenosis. Right ICA is patent to the skull base. LEFT: Left common carotid artery is patent. No significant left ICA stenosis. Left ICA is patent to t he skull base. INTRACRANIAL CTA: Both vertebral arteries are patent. Basilar artery is patent. Normal vascularity to the CHEMICAL [employer]PARER territory bilaterally. Patent posterior communicating arteries bilaterally. Both ICAs are patent at the skull base. Mild right cavernous carotid calcification. Normal vascularit y to the NICKIE and MCA territories bilaterally. No evidence of flow-limiting stenosis or aneurysm. Moderate emphysematous changes in the lung apices. Moderate spondylitic changes cervical spine. Strai ghtening of the normal cervical lordosis. IMPRESSION: Normal CTA head and neck Slight calcification right cavernous carotid artery. No significant ICA stenosis. No flow-limiting intracranial stenosis.
[2022-10-14] MEDS: iohexol 350 mg/mL 500 mL Btl (per mL) IV (13:10)
== END 2022-10-14 09:24 | disposition home or self-care (01) ==
PROVIDERS: PCP Family Medicine; Visit Provider Physician Assistant
DX: G45.9 Transient cerebral ischemic attack, unspecified (principal); G44.53 Primary thunderclap headache; I67.89 Other cerebrovascular disease; R29.90 Unspecified symptoms and signs involving the nervous system
CPT/HCPCS: 70496; 70498; 70553; A9577; Q9967

== ENCOUNTER 2022-10-22 14:44 | Outpatient (CLI) | payer MEDICAID, SELFPAY ==
--- NOTE | 2022-10-22 15:05 | US_ITS ---
WS: [id number] Right breast ultrasound, 10/22/2022 Clinical Data: ABNORMAL MAMMO Comparison: Mammogram, 10/22/2022 Findings: The right breast was scanned in the superior aspect from the 12 to 3 o'clock position. There were no cysts or masses. Only normal breast tissue is seen. Impression: Negative right breast ultrasound. Recommend return to annual screening mammograms US/US breast RT limited* [id number] BIRADS: 2-Benign FOLLOW UP: See Report
--- NOTE | 2022-10-22 15:05 | MM_ITS ---
WS: [id number] Right breast diagnostic 3D tomosynthesis digital mammogram, 10/22/2022 Clinical Data: ABNORMAL MAMMO Comparison: 09/25/2022 Findings: Right breast compression views in the MLO and CC projection were obtained. An additional right ML vie w was performed. There were no spiculated masses nor clustered calcifications. Only asymmetric breast tissue was seen. There were no secondary signs of carcinoma. Impression: 1. Negative right breast mammogram. 2. Right breast ultrasound MM/[place] [id number] BIRADS: 2-Benign FOLLOW UP: See Report The CAD card checker was used.
== END 2022-10-22 14:45 | disposition home or self-care (01) ==
PROVIDERS: PCP Family Medicine; Visit Provider Family Medicine
DX: R92.8 Other abnormal and inconclusive findings on diagnostic imaging of breast (principal)
CPT/HCPCS: 76642; 77061; G0279

== ENCOUNTER → 2022-11-11 16:13 | Outpatient (BNVA) | payer MEDICAID, SELFPAY | PROVIDERS: PCP Family Medicine; Visit Provider Psychiatry & Neurology Neurology | DX: G45.9 Transient cerebral ischemic attack, unspecified (principal); R55 Syncope and collapse; R53.82 Chronic fatigue, unspecified; G44.53 Primary thunderclap headache; G43.019 Migraine without aura, intractable, without status migrainosus | CPT/HCPCS: 36415; 81241; 82306; 82607; 82746; 83090; 83735; 83921; 85210; 85300; 85303; 85306; 85613; 85651; 85730; 86140; 86146; 86147; 86160; 86162; 86235; 86255; 86334; 86376; 86431 ==

== ENCOUNTER 2022-11-20 09:25 | Day surgery (SDC) | payer MEDICAID, SELFPAY ==
[2022-11-18 12:45] VITALS: BMI 24.0
--- NOTE | 2022-11-20 09:38 | P.ANESASSM_ITS ---
Pre-Anesthetic Assessment Height/Weight: Height 1.63 m Weight 63.503 kg Preop Diagnosis: epigastric pain, GERD Operation Date: 11/20/22 10:30 Proposed Procedures p EGD 56522 k21.9,r10.13(Not Applicable) - Yinka Hayward MD Familial anesthetic complications: None Was Beta William taken within 24 hours: N/A Was Clonidine taken within 24 hours: N/A Social Tobacco (0.5 ppd x10 years ) and No alcohol THC weekly Exam alert, oriented x 3, clear to auscultation bilaterally and regular rate & rhythm Airway Submandibular: within normal limits Cervical ROM: within normal limits Mallampati: Class II Dentition: false History/ROS No significant history except as noted Pulmonary Chronic Obstructive Pulmonary Disease CV/HEM None reported None reported Hepatic None reported GI Gastroesophageal Reflux Disease epigastric pain Metabolic Thyroid Disease [facility] [place] None reported Neuropsych Transient Ischemic Attack (November 2022, following with cardiology and neurology; no residual) Anesthetic Plan ASA status: 3 Anesthesia: Anesthesia Evaluation and MAC Risk of > 500 ml blood loss (7ml/kg in children): No Medications/Allergies Home Medications Medication Instructions Recorded Confirmed Last Taken Type albuterol sulfate 90 mcg/actuation 3 inh inhalation Q4H PRN shortness 08/29/21 11/18/22 11/15/22 Rx aerosol inhaler (Ventolin HFA) of breath or wheezing #8.5 grams alprazolam 0.5 mg tablet (Xanax) 0.5 mg PO DAILY #30 tabs 06/25/22 11/18/22 11/18/22 Rx escitalopram oxalate 5 mg tablet 5 mg PO DAILY #30 tabs 09/10/22 11/18/22 11/18/22 Rx (Lexapro) pantoprazole 40 mg tablet,delayed 40 mg PO BID #60 tabs 09/11/22 11/18/22 11/18/22 Rx release aspirin 81 mg capsule 81 mg PO DAILY #60 caps 09/29/22 11/18/22 11/18/22 Rx sucralfate 1 gram tablet 1 g PO BID 09/29/22 11/18/22 11/18/22 History divalproex 250 mg tablet,delayed 250 mg PO QID 30 days #360 tabs 11/11/22 11/18/22 11/18/22 Rx release (Depakote) cholecalciferol (vitamin D3) 1,250 50,000 unit PO .weekly #12 caps 11/12/22 11/18/22 11/16/22 Rx mcg (50,000 unit) capsule atorvastatin 40 mg tablet 40 mg PO DAILY 11/18/22 11/18/22 11/18/22 History Allergies Allergy/AdvReac Type Severity Reaction Status Date / Time codeine Allergy ALGY-Hives Verified 11/20/22 09:37 [facility] Anesthesia Medical History Hx of pneumococcal pneumonia Surgical History Hx of appendectomy Lap Hx of section x 2 Hx of cholecystectomy Lap Social History Smoking and tobacco status: current every day smoker cigarettes Packs smoked per day: 0.5 Second hand smoke exposure: No Smoking risk assessment/counseling performed?: No Alcohol intake: never Desire information about alcohol rehabilitation?: No Counseling given: No Substance/Drug Use: current Substance/Drug use frequency: few times a week Desire information about substance/drug rehabilitation?: No Counseling given: No Adopted: No Caregiver/support person: No Lives independently: Yes Household members: none Housing: House Marital status: Number of children: 2 service: No Current occupational status: unemployed Pets and animals: No Do you think of yourself as: Straight/Heterosexual Current gender identity: Female Data Anesthesia Cardiac Studies: Echocardiogram 10/07/22 Holter Monitor 10/14/22
[2022-11-20 09:52] VITALS: BP 99/63; PULSE 68; RESP 18; TEMP 36.1; O2SAT 99
[2022-11-20] MEDS: sodium chloride 0.9% 1,000 ML 30 ML IV (09:56)
--- NOTE | 2022-11-20 09:59 | W.PM.OPSUD ---
Surgery/Procedure H&P Update DATE OF PROCEDURE: November 20, 2022 DATE H&P PERFORMED: 10/23/22 H&P UPDATE INFORMATION: I have reviewed H&P completed within last 30 days, I have examined patient prior to procedure, No changes to prior documentation and H&P is in [facility] [place] [facility] [place] on date indicated PREOP DIAGNOSIS: epigastric pain, GERD PLANNED PROCEDURE: Operation Date: 11/20/22 10:30 Proposed Procedures p EGD [id number] k21.9,r10.13(Not Applicable) - Yinka Hayward MD
[2022-11-20 10:22] VITALS: BP 91/60; PULSE 67; RESP 18; TEMP 36.6; O2SAT 94
[2022-11-20 10:50] VITALS: BP 95/60; PULSE 73; RESP 16; O2SAT 96
--- NOTE | 2022-11-20 12:49 | ANE.PACU2 ---
Inpatient post-anesthesia follow up: Airway intact: Yes Vital signs: Temperature 97.8 F Pulse Rate 73 Respiratory Rate 16 Blood Pressure 95/60 Pulse Oximetry 96 Oxygen Delivery Me thod Room Air Oxygen Flow Rate Fraction of Inspir ed Oxygen Hydration adequate: Yes Nausea and vomiting: No Pain level: 2 Mental status: Baseline
== END 2022-11-20 10:54 | disposition home or self-care (01) ==
PROVIDERS: PCP Family Medicine; Visit Provider Surgery
PROC: 0DJ08ZZ Inspection of Upper Intestinal Tract, Via Natural or Artificial Opening Endoscopic (ICD-10-PCS; CPT 43235; principal; 2022-11-20 10:30)
DX: R10.13 Epigastric pain (principal); K31.89 Other diseases of stomach and duodenum; K29.70 Gastritis, unspecified, without bleeding; F17.210 Nicotine dependence, cigarettes, uncomplicated; J44.9 Chronic obstructive pulmonary disease, unspecified; Z86.73 Personal history of transient ischemic attack (TIA), and cerebral infarction without residual deficits; Z79.82 Long term (current) use of aspirin
CPT/HCPCS: 43239; 88305; 88342; J2704; J7030

== ENCOUNTER → 2022-12-24 11:37 | Outpatient (BNVA) | payer MEDICAID, SELFPAY | PROVIDERS: PCP Family Medicine; Visit Provider Family Medicine | DX: F32.A Depression, unspecified (principal); F41.0 Panic disorder [episodic paroxysmal anxiety]; F41.1 Generalized anxiety disorder; F41.9 Anxiety disorder, unspecified; G43.019 Migraine without aura, intractable, without status migrainosus; G44.53 Primary thunderclap headache; R79.89 Other specified abnormal findings of blood chemistry | CPT/HCPCS: 80053; 84439; 84443; 84481; 85025 ==

== ENCOUNTER → 2023-08-03 14:10 | Outpatient (BNVA) | payer MEDICAID, SELFPAY | PROVIDERS: PCP Family Medicine; Visit Provider Family Medicine | DX: F41.1 Generalized anxiety disorder (principal); E06.3 Autoimmune thyroiditis; F41.0 Panic disorder [episodic paroxysmal anxiety]; E55.9 Vitamin D deficiency, unspecified | CPT/HCPCS: 80053; 82306; 84439; 84443 ==

== ENCOUNTER → 2024-02-10 13:41 | Outpatient (BNVA) | payer MEDICAID, SELFPAY | PROVIDERS: PCP Family Medicine; Visit Provider Family Medicine | DX: E06.3 Autoimmune thyroiditis (principal); E55.9 Vitamin D deficiency, unspecified; R79.89 Other specified abnormal findings of blood chemistry; G62.9 Polyneuropathy, unspecified; E83.42 Hypomagnesemia; R53.82 Chronic fatigue, unspecified; R55 Syncope and collapse | CPT/HCPCS: 80053; 80061; 81000; 82306; 82607; 82746; 83036; 83540; 83735; 84439; 84443; 85025; 85651; 86140; G0103 ==